=== PATIENT | male | born 1955 | race Caucasian/White ===

== ENCOUNTER 2017-10-10 15:49 | Inpatient (IN) | payer OTHER ==
[~2017-10-10] VITALS: Ht 172.7 cm; Wt 71.7 kg
[2017-10-10 15:50] VITALS: BP_SYST 99
[2017-10-10] MEDS ORDERED: NACL 0.9% 1,000 ML IV ONE ×3 (15:57→17:30)
[2017-10-10] MEDS ORDERED: ASPIRIN 81 MG TAB.CHEW PO ONE (16:00)
[2017-10-10] MEDS ORDERED: KETOROLAC TROMETHAMINE 30 MG VIAL IVP ONE (16:15)
[2017-10-10 16:32] LABS: HEMOGLOBIN 17.3 g/dL (14.0-18.0)
[2017-10-10 16:37] LABS: HEMATOCRIT 49.3 % (36-54); MEAN CORPUSCULAR HEMOGLOBIN 35 pg (27-31); MEAN CORPUSCULAR HGB CONC 35 % (32-36); MEAN CORPUSCULAR VOLUME 100 fL (79.0-98.0); PLATELET COUNT (AUTO) 371 K/uL (130-430); RED BLOOD CELL COUNT(AUTO) 4.94 MIL/uL (4.2-6.2); RED CELL DISTRIBUTION WIDTH 12.4 % (9.0-15.0); WHITE BLOOD COUNT (AUTO) 14.5 K/uL (4.8-10.8)
[2017-10-10 16:40] LABS: CALCIUM 9.7 mg/dL (8.4-11.0); CREATININE 6.4 mg/dL (0.55-1.30); POTASSIUM 3.4 mmol/L (3.5-5.1)
[2017-10-10 16:43] LABS: PROTHROMBIN TIME 10.2 SECS (9.5-12.5)
[2017-10-10 16:45] LABS: ALBUMIN 3.6 g/dL (3.4-4.8); TOTAL BILIRUBIN 0.8 mg/dL (0.0-1.0)
[2017-10-10 16:51] LABS: ATYPICAL LYMPHOCYTES % 3 % (0-0); BAND % (MANUAL) 1 % (0-6); BASOPHILS % (MANUAL) 0 % (0-2); EOSINOPHILS % (MANUAL) 1 % (0-7); LYMPHOCYTES % (MANUAL) 35 % (20-46); MONOCYTES % (MANUAL) 10 % (0-11)
[2017-10-10] MEDS ORDERED: cefTRIAXone 2 GM VIAL ONE (17:28)
[2017-10-10 17:38] LABS: BILIRUBIN,URINE 1+ (NEGATIVE); BLOOD, URINE 1+ (NEGATIVE); CLARITY/URINE HAZY (CLEAR); COLOR,URINE AMBER (YELLOW); GLUCOSE,URINE NEGATIVE (NEGATIVE); KETONES,URINE NEGATIVE (NEGATIVE); LEUKOCYTE ESTERASE ,URINE NEGATIVE (NEGATIVE); NITRITE, URINE NEGATIVE (NEGATIVE); PROTEIN URINE 2+ (NEGATIVE); UROBILINOGEN,URINE 0.2 (0.2-1.0)
[2017-10-10 17:50] VITALS: BP_SYST 110
[2017-10-10 17:58] LABS: BACTERIA,URINE MANY /HPF (None Seen); RBC,URINE 0-3 /HPF (0-3); URINE AMORPHOUS URATE 1+ /HPF (None Seen); YEAST,URINE Rare /HPF (None Seen)
[2017-10-10 17:59] LABS: COARSE GRANULAR CASTS,URINE 0-10 /LPF (None Seen); OTHER CASTS, URINE WBC CASTS 1+ /LPF (None Seen)
[2017-10-10] MEDS ORDERED: OLME1TAB26 PO (17:59)
[2017-10-10 18:00] LABS: MUCUS,URINE 2+ /LPF (None Seen)
[2017-10-10 18:03] LABS: BARBITURATE, URINE NEGATIVE (NEG <=200); BENZODIAZEPINE, URINE NEGATIVE (NEG <=150); CANNABINOID, URINE NEGATIVE (NEG <=50); COCAINE, URINE NEGATIVE (NEG <=150); METHAMPHETAMINES SCREEN,URINE NEGATIVE (NEG <=500); OPIATE, URINE NEGATIVE (NEG <=100); PHENCYCLIDINE SCREEN,URINE NEGATIVE (NEG <=25); UR TRICYCLIC ANTIDEPRESSANTS NEGATIVE (NEG <=300); URINE AMPHETAMINE NEGATIVE (NEG <=500); URINE METHADONE NEGATIVE (NEG <=200); URINE OXYCODONE SCREEN NEGATIVE (NEG <=100); URINE PROPOXYPHENE SCREEN NEGATIVE (NEG <=300)
[2017-10-10] MEDS ORDERED: cloNIDine HCL 0.1 MG TABLET PO PRN (18:15)
[2017-10-10] MEDS ORDERED: TEMAZEPAM 15 MG CAPSULE PO PRN (18:45)
[2017-10-10 20:01] VITALS: BP_SYST 119
[2017-10-10] MEDS: NACL 0.9% 1,000 ML IV SCH ×2 (20:30→23:45)
[2017-10-10 20:59] LABS: CALCIUM 8.3 mg/dL (8.4-11.0); CREATININE 4.74 mg/dL (0.55-1.30); POTASSIUM 3.7 mmol/L (3.5-5.1)
[2017-10-11 00:05] VITALS: BP_SYST 108
[2017-10-11] MEDS: NACL 0.9% 1,000 ML IV SCH ×3 (05:00→17:09)
[2017-10-11 06:57] LABS: BASOPHILS % (AUTO) 0.3 % (0.0-2.0); EOSINOPHILS # (AUTO) 0.2 K/uL (0.0-0.4); EOSINOPHILS % (AUTO) 1.6 % (0.0-4.0); HEMATOCRIT 48.2 % (36-54); HEMOGLOBIN 16.7 g/dL (14.0-18.0); LYMPHOCYTES # (AUTO) 2.3 K/uL (1.0-5.5); LYMPHOCYTES % (AUTO) 23.4 % (20.5-51.5); MEAN CORPUSCULAR HEMOGLOBIN 34 pg (27-31); MEAN CORPUSCULAR HGB CONC 35 % (32-36); MEAN CORPUSCULAR VOLUME 99 fL (79.0-98.0); MONOCYTES # (AUTO) 0.8 K/uL (0.0-1.0); MONOCYTES % (AUTO) 8.6 % (1.7-9.3); NEUTROPHILS # (AUTO) 6.4 K/uL (1.8-7.7); NEUTROPHILS % (AUTO) 66.1 % (40.0-70.0); PLATELET COUNT (AUTO) 327 K/uL (130-430); RED BLOOD CELL COUNT(AUTO) 4.87 MIL/uL (4.2-6.2); RED CELL DISTRIBUTION WIDTH 12.5 % (9.0-15.0); WHITE BLOOD COUNT (AUTO) 9.8 K/uL (4.8-10.8)
[2017-10-11 08:00] VITALS: BP_SYST 113
[2017-10-11 08:10] LABS: ALBUMIN 3.2 g/dL (3.4-4.8); CALCIUM 8.7 mg/dL (8.4-11.0); CREATININE 2.68 mg/dL (0.55-1.30); FREE T4 (FREE THYROXINE) 1.1 ng/dL (0.6-1.6); PHOSPHORUS 3.8 mg/dL (2.7-4.5); POTASSIUM 3.8 mmol/L (3.5-5.1); THYROID STIMULATING HORMONE 0.27 uIu/mL (0.34-4.82); TOTAL BILIRUBIN 0.5 mg/dL (0.0-1.0)
[2017-10-11] MEDS: FLUTICASONE/VILANTEROL 1 EACH BLST.W.DEV INH SCH (11:28)
[2017-10-11 11:32] VITALS: BP_SYST 104
[2017-10-11 15:31] VITALS: BP_SYST 116
[2017-10-11] MEDS ORDERED: LOPERAMIDE HCL 2 MG CAPSULE PO PRN (16:45)
[2017-10-11] MEDS ORDERED: LOPERAMIDE HCL 2 MG CAPSULE PO ONE (16:45)
[2017-10-11] MEDS ORDERED: metroNIDAZOLE 500 MG TABLET PO ONE (17:00)
[2017-10-11] MEDS ORDERED: cefTRIAXone 1 GM in D5W 50 ML IV SCH (18:00)
[2017-10-11] MEDS: LACTOBACILLUS RHAMNOSUS GG 1 CAP CAPSULE PO SCH (20:37)
[2017-10-11] MEDS ORDERED: FLUTICASONE 250 mCg/SALMETEROL 50 mCg DISKUS W.DEV INH SCH (21:00)
[2017-10-11] MEDS: metroNIDAZOLE 500 MG TABLET PO SCH (21:31)
[2017-10-12 00:12] VITALS: BP_SYST 124
[2017-10-12] MEDS: NACL 0.9% 1,000 ML IV SCH ×2 (03:59→08:49)
[2017-10-12] MEDS: metroNIDAZOLE 500 MG TABLET PO SCH ×2 (04:59→13:58)
[2017-10-12 07:11] LABS: BASOPHILS % (AUTO) 0.3 % (0.0-2.0); EOSINOPHILS # (AUTO) 0.1 K/uL (0.0-0.4); EOSINOPHILS % (AUTO) 1.4 % (0.0-4.0); HEMATOCRIT 45.6 % (36-54); HEMOGLOBIN 15.7 g/dL (14.0-18.0); LYMPHOCYTES # (AUTO) 2.6 K/uL (1.0-5.5); LYMPHOCYTES % (AUTO) 26.4 % (20.5-51.5); MEAN CORPUSCULAR HEMOGLOBIN 35 pg (27-31); MEAN CORPUSCULAR HGB CONC 35 % (32-36); MEAN CORPUSCULAR VOLUME 100 fL (79.0-98.0); MONOCYTES # (AUTO) 0.7 K/uL (0.0-1.0); NEUTROPHILS # (AUTO) 6.3 K/uL (1.8-7.7); NEUTROPHILS % (AUTO) 64.9 % (40.0-70.0); PLATELET COUNT (AUTO) 329 K/uL (130-430); RED BLOOD CELL COUNT(AUTO) 4.55 MIL/uL (4.2-6.2); RED CELL DISTRIBUTION WIDTH 12.1 % (9.0-15.0); WHITE BLOOD COUNT (AUTO) 9.7 K/uL (4.8-10.8)
[2017-10-12 07:32] LABS: CALCIUM 8.9 mg/dL (8.4-11.0); CREATININE 1.1 mg/dL (0.55-1.30); POTASSIUM 3.8 mmol/L (3.5-5.1); TOTAL BILIRUBIN 0.4 mg/dL (0.0-1.0)
[2017-10-12 08:00] VITALS: BP_SYST 128
[2017-10-12] MEDS: LACTOBACILLUS RHAMNOSUS GG 1 CAP CAPSULE PO SCH (08:48)
[2017-10-12] MEDS: FLUTICASONE/VILANTEROL 1 EACH BLST.W.DEV INH SCH (08:49)
[2017-10-12 11:29] VITALS: BP_SYST 124
[2017-10-12 15:34] VITALS: BP_SYST 148
[2017-10-12] MEDS ORDERED: METR500T PO (18:00)
[2017-10-12] MEDS ORDERED: LACTIN PO (18:01)
[2017-10-12 18:23] VITALS: BP_SYST 148
== END 2017-10-12 18:50 | disposition home or self-care (01) | DRG 683 ==
LOC: SED 15:49 → STU 17:16 → SMU 10-11 17:10
PROVIDERS: ADMIT Internal Medicine; ATTEND Internal Medicine
DX: N17.0 Acute kidney failure with tubular necrosis (principal); N39.0 Urinary tract infection, site not specified; I95.9 Hypotension, unspecified; R55 Syncope and collapse; E86.0 Dehydration; K52.9 Noninfective gastroenteritis and colitis, unspecified; F17.200 Nicotine dependence, unspecified, uncomplicated; I10 Essential (primary) hypertension; J44.9 Chronic obstructive pulmonary disease, unspecified
CPT/HCPCS: 36415; 71045; 76770; 80048; 80053; 80061; 80307; 81000-TC; 82150-TC; 82550-TC; 83036; 83605; 83690-TC; 84100-TC; 84439; 84443-TC; 84484; 85007; 85025; 85027; 85610-TC; 85730-TC; 86710; 87040-TC; 87045-TC; 87046; 87086; 89055; 93005; 93306; 96361; 96365; 99285; G0482; J0696; J1885; J7030; J7060